=== PATIENT | female | born 1970 | race American Indian/Alaskan Native ===

== ENCOUNTER 2017-05-07 14:24 | Emergency (ER) | payer OTHER ==
[2017-05-07] MEDS: DILAUDID IM ONE (15:40)
--- NOTE | 2017-05-07 19:11 | XRay Report ---
FINAL REPORT EXAM: XR SPINE LUMBOSACRAL 2-3V HISTORY: back pain TECHNIQUE: Lumbar spine 3 views PRIORS: None. FINDINGS: Vertebral bodies demonstrate normal height and alignment. The disc spaces are within normal limits. There is no evidence of spondylolisthesis. Transverse and spinous processes are intact SI joints are unremarkable. IMPRESSION: Negative lumbar spine series
--- NOTE | 2017-05-07 19:44 | Emergency Department Report ---
HPI - General Chief Complaint: Back Pain/Injury Time Seen by Provider: 05/07/17 17:16 - HPI HPI: She was exercising at the gym when she felt severe low back pain, pain is like a pool, 10 out of 10, with radiation to the back of her thighs. Patient able to ambulate without difficulty but is painful. No loss of bowel or urine. ED Past Medical Hx - Past Medical History Previous Medical History?: Yes Hx Hypertension: No Hx CVA: No Hx Asthma: Yes (well controlled) - Surgical History Past Surgical History?: No - Medications Home Medications: Home Medications Medication Instructions Recorded Confirmed Last Taken Type Methocarbamol [Robaxin-750] 750 mg PO BID PRN #30 tablet 05/07/17 Unknown Rx ED Review of Systems ROS: Stated complaint: LOW BACK PAIN Other details as noted in HPI Comment: All other systems reviewed and negative ENT: denies: ear pain, throat pain Cardiovascular: denies: chest pain Musculoskeletal: back pain Physical Exam - Physical Exam Vital Signs: Vital Signs 05/07/17 05/07/17 05/07/17 14:37 15:59 17:40 Temperature 98.0 F Pulse Rate 82 70 Respiratory 22 20 Rate Blood Pressure 104/67 Blood Pressure 106/70 [Left] O2 Sat by Pulse 99 Oximetry Physical Exam: Gen. alert and oriented 3 in no distress Head atraumatic normocephalic Eyes PERR LA EOMI Chest regular rate and rhythm normal S1-S2 lungs clear bilaterally Abdomen soft nondistended Back no point tenderness, moderate paravertebral tenderness lumbar area Neuro no focal deficit. Psych normal mood. ED Course Vital Signs 05/07/17 05/07/17 05/07/17 14:37 15:59 17:40 Temperature 98.0 F Pulse Rate 82 70 Respiratory 22 20 Rate Blood Pressure 104/67 Blood Pressure 106/70 [Left] O2 Sat by Pulse 99 Oximetry Critical care attestation.: If time is entered above; I have spent that time in minutes in the direct care of this critically ill patient, excluding procedure time. ED Disposition Clinical Impression: Lumbosacral injury Qualifiers: Encounter type: initial encounter Qualified Code(s): S39.92XA - Unspecified injury of lower back, initial encounter Disposition: OP ADMIT IP TO THIS HOSP Is pt being admited?: No Does the pt Need Aspirin: No Condition: Stable Instructions: Low Back Strain (ED), Acute Low Back Pain (ED), Lumbar Radiculopathy (ED) Prescriptions: Methocarbamol [Robaxin-750] 750 mg PO BID PRN #30 tablet PRN Reason: Spasms Referrals: PRIMARY CARE,MD [Primary Care Provider] - 3-5 Days
[2017-05-07 22:03] VITALS: BP 99/68
== END 2017-05-07 20:20 | disposition admitted as inpatient to this hospital (09) ==
LOC: ED 14:24
DX: S39.92XA Unspecified injury of lower back, initial encounter (principal); J45.909 Unspecified asthma, uncomplicated; Z88.8 Allergy status to other drugs, medicaments and biological substances; Z91.09 Other allergy status, other than to drugs and biological substances; X58.XXXA Exposure to other specified factors, initial encounter; Y93.89 Activity, other specified; Y99.8 Other external cause status; Y92.89 Other specified places as the place of occurrence of the external cause
CPT/HCPCS: 72100; 96372; 99283; J1170